=== PATIENT | male | born 1985 | race Caucasian/White ===

== ENCOUNTER 2025-03-23 13:13 | Emergency (ER) | payer BC, MEDICAID, OTHER ==
[2025-03-23] MEDS: fentaNYL 100 MCG/2 ML SDV IM ONE (13:00)
[2025-03-23 13:21] VITALS: BP 128/63; PULSE 67
[2025-03-23] MEDS: fentaNYL 100 MCG/2 ML SDV ONE (14:03)
[2025-03-23] MEDS: Diphtheria,Pertussis(Acell),Tetanus Vaccine 0.5 ML Syringe IM ONE (15:47)
[2025-03-23] MEDS: Bacitracin Oint 1 GM U/D Packet TOP ONE (15:48)
== END 2025-03-23 14:20 | disposition home or self-care (01) ==
LOC: DL.ED 13:13
DX: S61.412A Laceration without foreign body of left hand, initial encounter (principal); S61.012A Laceration without foreign body of left thumb without damage to nail, initial encounter; S61.210A Laceration without foreign body of right index finger without damage to nail, initial encounter; Z88.8 Allergy status to other drugs, medicaments and biological substances; W26.8XXA Contact with other sharp object(s), not elsewhere classified, initial encounter
CPT/HCPCS: 12002; 12004; 90471; 90715; 96372; 99283; A9270; J2003; J3010